=== PATIENT | female | born 1965 | race Caucasian/White ===

== ENCOUNTER 2020-03-16 10:40 | Emergency (ER) | payer MEDICAID ==
[~2020-03-16] VITALS: Ht 170.2 cm; Wt 127.0 kg
[2020-03-16 10:49] VITALS: BP 137/84
--- NOTE | 2020-03-16 10:58 | NUR ---
PT SEEN AND EXAMINED BY .
--- NOTE | 2020-03-16 11:16 | NUR ---
VOCATIONAL INSTRUCTOR AT BEDSIDE FOR XRAY.
--- NOTE | 2020-03-16 13:07 | NUR ---
Updated by ER provider Knee immobilizer/crutches/gait training by MEGAN Erazo Patient discharged to home in stable condition. Written and verbal after care instructions given. Patient verbalizes understanding of instruction.
== END 2020-03-16 13:09 | disposition home or self-care (01) ==
LOC: ER 10:49
DX: S89.91XA Unspecified injury of right lower leg, initial encounter (principal); E66.01 Morbid (severe) obesity due to excess calories; Z68.41 Body mass index [BMI] 40.0-44.9, adult; Z98.890 Other specified postprocedural states; X50.1XXA Overexertion from prolonged static or awkward postures, initial encounter; Y93.89 Activity, other specified; Y92.89 Other specified places as the place of occurrence of the external cause; Y99.8 Other external cause status
CPT/HCPCS: 73564-TC